=== PATIENT | male | born 1980 | race Caucasian/White ===

== ENCOUNTER 2019-06-18 06:23 | Emergency (ER) | payer BC ==
[2019-06-18] MEDS ORDERED: Albuterol/Ipratropium 3.0-0.5 MG/3 ML Neb Soln NEB ONE ×2 (07:14→08:03)
[2019-06-18] MEDS ORDERED: predniSONE 20 MG Tab PO ONE (07:14)
--- NOTE | 2019-06-18 07:22 | EDM.PDOC ---
ED HPI GENERAL MEDICAL PROBLEM - General Chief Complaint: Respiratory Problem Stated Complaint: FLU SYMPTOMS Time Seen by Provider: 06/18/19 07:05 Source of Information: Reports: Patient History Limitations: Reports: No Limitations - History of Present Illness INITIAL COMMENTS - FREE TEXT/NARRATIVE: Patient is a 39-year-old male who complains of having a cough which is occasionally productive of yellow sputum for the past week which is gotten much worse. Patient started with symptoms 1 days ago being achy all over and having a headache. His flulike symptoms have improved he denies any nausea vomiting but is having diarrhea. Is not a cigarette smoker has not had bronchitis or pneumonia in the past. His room air O2 sat is 93%. This reason I will get a chest x-ray on him. He does seem to have decreased breath sounds on his left base on my exam. He will be given some prednisone started on DuoNeb treatment and I will start him on antibiotic also. Duration: Week(s): (1) Location: Reports: Chest Severity: Mild Improves with: Reports: None Worsens with: Reports: None Associated Symptoms: Reports: Headaches, Malaise. Denies: Fever/Chills Treatments [employer]: Reports: NSAIDS chest with coughing Pain Score (Numeric/FACES): 8 - Related Data Allergies Allergy/AdvReac Type Severity Reaction Status Date / Time No Known Allergies Allergy Verified 06/18/19 06:47 Home Meds: Home Meds Albuterol Sulfate [Albuterol Sulfate Hfa] 8.5 gm IH Q6HR PRN 7 Days #1 [email or web address] 06/18/19 [Rx] Azithromycin [Zithromax] 250 mg PO DAILY #7 tab 06/18/19 [Rx] Codeine/guaiFENesin [Robitussin AC] 10 ml PO QID #120 bottle 06/18/19 [Rx] Levofloxacin [Levaquin] 500 mg PO DAILY #7 tablet 06/18/19 [Rx] Past Medical History - Past Health History Medical/Surgical History: Denies Medical/Surgical History - Infectious Disease History Infectious Disease History: Reports: Chicken Pox Social & Family History - Tobacco Use Smoking Status *Q: Never Smoker - Recreational Drug Use Recreational Drug Use: No ED ROS GENERAL - Review of Systems Review Of Systems: Comprehensive ROS is negative, except as noted in HPI. ED EXAM, GENERAL - Physical Exam Exam: See Below Free Text/Narrative:: Exam: See Below Exam Limited By: No Limitations Head: Atraumatic Neck: Normal Inspection. No: Carotid Bruit, Lymphadenopathy (R) Respiratory/Chest: No Respiratory Distress, Lungs Clear with decreased breath sounds on the left base only. No Accessory Muscle Use. No: Chest Non-Tender Cardiovascular: Normal Peripheral Pulses, Regular Rate, Rhythm, No Edema, No JVD GI/Abdominal: Normal Bowel Sounds, Tender. No: Non-Tender, Splenomegaly Back Exam: Normal Inspection. No: CVA Tenderness (R) Extremities: Normal Inspection. No: No Pedal Edema Neurological: Alert, Oriented, Normal Cognition Psychiatric: Normal Affect Skin Exam: Warm Lymphatic: No Adenopathy Course - Vital Signs Last Recorded V/S: Last Vital Signs Temp 37.0 C 06/18/19 06:40 Pulse 93 06/18/19 06:40 Resp 16 06/18/19 06:40 BP 120/66 06/18/19 06:40 Pulse Ox 92 L 06/18/19 06:40 - Orders/Labs/Meds Orders: Active Orders 24 hr Category Date Time Status RT Aerosol Therapy [RC] ASDIRECTED Care 06/18/19 07:16 Active RT Aerosol Therapy [RC] ASDIRECTED Care 06/18/19 08:03 Active Sodium Chloride 0.9% [Normal Saline] 1,000 ml Med 06/18/19 08:43 Active IV .BOLUS Sodium Chloride 0.9% [Saline Flush] Med 06/18/19 08:00 Active 10 ml FLUSH ASDIRECTED PRN Sodium Chloride 0.9% [Saline Flush] Med 06/18/19 08:00 Active 2.5 ml FLUSH ASDIRECTED PRN Saline Lock Insert [OM.PC] Stat Oth 06/18/19 08:00 Ordered Medication Orders Sodium Chloride (Normal Saline) 1,000 mls @ 999 mls/hr IV .BOLUS ONE Stop: 06/18/19 09:43 Sodium Chloride (Saline Flush) 10 ml FLUSH ASDIRECTED PRN PRN Reason: Keep Vein Open Sodium Chloride (Saline Flush) 2.5 ml FLUSH ASDIRECTED PRN PRN Reason: Keep Vein Open Labs: Laboratory Tests 06/18/19 06/18/19 06/18/19 Range/Units 08:12 08:12 08:12 WBC 9.81 (4.0-11.0) K/uL RBC 4.84 (4.50-5.90) M/uL Hgb 15.7 (13.0-17.0) g/dL Hct 45.4 (38.0-50.0) % MCV 93.8 (80.0-98.0) fL MCH 32.4 H (27.0-32.0) pg MCHC 34.6 (31.0-37.0) g/dL RDW Std Deviation 44.8 (28.0-62.0) fl RDW Coeff of Cherie 13 (11.0-15.0) % Plt Count 73 L (150-400) K/uL MPV 11.10 (7.40-12.00) fL Neut % (Auto) 83.2 H (48.0-80.0) % Lymph % (Auto) 9.8 L (16.0-40.0) % [place] % (Auto) 6.9 (0.0-15.0) % Eos % (Auto) 0.0 (0.0-7.0) % Baso % (Auto) 0.1 (0.0-1.5) % Neut # (Auto) 8.2 H (1.4-5.7) K/uL Lymph # (Auto) 1.0 (0.6-2.4) K/uL [place] # (Auto) 0.7 (0.0-0.8) K/uL Eos # (Auto) 0.0 (0.0-0.7) K/uL Baso # (Auto) 0.0 (0.0-0.1) K/uL Nucleated RBC % 0.0 /100WBC Nucleated RBCs # 0 K/uL D-Dimer, Quantitative 0.67 H (0.0-0.50) mg/L FEU Lactate 2.6 H* (0.20-2.00) mmol/L Sodium (136-148) mmol/L Potassium (3.5-5.1) mmol/L Chloride (98-107) mmol/L Carbon Dioxide (21.0-32.0) mmol/L BUN (7.0-18.0) mg/dL Creatinine (0.8-1.3) mg/dL Est Cr Clr Drug Dosing mL/min Estimated GFR (MDRD) ml/min Glucose (74-106) mg/dL Calcium (8.5-10.1) mg/dL Total Bilirubin (0.2-1.0) mg/dL AST (15-37) IU/L ALT (14-63) IU/L Alkaline Phosphatase (46-116) U/L Total Protein (6.4-8.2) g/dL Albumin (3.4-5.0) g/dL Globulin (2.6-4.0) g/dL Albumin/Globulin Ratio (0.9-1.6) 06/18/19 Range/Units 08:12 WBC (4.0-11.0) K/uL RBC (4.50-5.90) M/uL Hgb (13.0-17.0) g/dL Hct (38.0-50.0) % MCV (80.0-98.0) fL MCH (27.0-32.0) pg MCHC (31.0-37.0) g/dL RDW Std Deviation (28.0-62.0) fl RDW Coeff of Cherie (11.0-15.0) % Plt Count (150-400) K/uL MPV (7.40-12.00) fL Neut % (Auto) (48.0-80.0) % Lymph % (Auto) (16.0-40.0) % [place] % (Auto) (0.0-15.0) % Eos % (Auto) (0.0-7.0) % Baso % (Auto) (0.0-1.5) % Neut # (Auto) (1.4-5.7) K/uL Lymph # (Auto) (0.6-2.4) K/uL [place] # (Auto) (0.0-0.8) K/uL Eos # (Auto) (0.0-0.7) K/uL Baso # (Auto) (0.0-0.1) K/uL Nucleated RBC % /100WBC Nucleated RBCs # K/uL D-Dimer, Quantitative (0.0-0.50) mg/L FEU Lactate (0.20-2.00) mmol/L Sodium 136 (136-148) mmol/L Potassium 3.9 (3.5-5.1) mmol/L Chloride 97 L (98-107) mmol/L Carbon Dioxide 28.3 (21.0-32.0) mmol/L BUN 9 (7.0-18.0) mg/dL Creatinine 1.3 (0.8-1.3) mg/dL Est Cr Clr Drug Dosing 79.64 mL/min Estimated GFR (MDRD) > 60.0 ml/min Glucose 139 H (74-106) mg/dL Calcium 8.2 L (8.5-10.1) mg/dL Total Bilirubin 0.4 (0.2-1.0) mg/dL AST 25 (15-37) IU/L ALT 29 (14-63) IU/L Alkaline Phosphatase 67 (46-116) U/L Total Protein 7.2 (6.4-8.2) g/dL Albumin 3.4 (3.4-5.0) g/dL Globulin 3.8 (2.6-4.0) g/dL Albumin/Globulin Ratio 0.9 (0.9-1.6) Meds: Medications Generic Name Dose Route Start Last Admin Trade Name Freq PRN Reason Stop Dose Admin Sodium Chloride 1,000 mls @ 999 mls/hr 06/18/19 08:43 Normal Saline IV 06/18/19 09:43 .BOLUS ONE Sodium Chloride 10 ml 06/18/19 08:00 Saline Flush FLUSH ASDIRECTED PRN Keep Vein Open Sodium Chloride 2.5 ml 06/18/19 08:00 Saline Flush FLUSH ASDIRECTED PRN Keep Vein Open Discontinued Medications Generic Name Dose Route Start Last Admin Trade Name Freq PRN Reason Stop Dose Admin Albuterol/Ipratropium 3 ml 06/18/19 07:14 06/18/19 07:28 Duoneb 3.0-0.5 Mg/3 Ml NEB 06/18/19 07:15 3 ml ONETIME ONE Administration Albuterol/Ipratropium 3 ml 06/18/19 08:03 06/18/19 08:10 Duoneb 3.0-0.5 Mg/3 Ml NEB 06/18/19 08:04 3 ml ONETIME ONE Administration Azithromycin 500 mg 06/18/19 08:45 Zithromax PO 06/18/19 08:46 Q24H ONE Levofloxacin 500 mg 06/18/19 08:03 Levaquin PO 06/18/19 08:04 ONETIME ONE Prednisone 40 mg 06/18/19 07:14 06/18/19 07:40 Prednisone PO 06/18/19 07:15 40 mg ONETIME ONE Administration - Re-Assessments/Exams Free Text/Narrative Re-Assessment/Exam: 06/18/19 08:58 Patient felt no better after DuoNeb and prednisone. His room air pulse ox was 90% though he did not feel dyspneic. Chest x-ray was unimpressive to my assessment but radiologist has read it as an early left lower lobe infiltrate. Patient is receiving both Levaquin 500mg p.o. and Zithromax 500 mg p.o. As lactate was 2.6 otherwise his d-dimer is negative and white blood cell count unimpressive. Patient was offered admission in the hospital which he has refused and states he feels well enough to go home. I am giving him a liter of fluid for the elevated lactate continue him on both antibiotics. I have explained to him that if he is feeling worse particularly any dyspnea with exertion, fever chills, vomiting or any other symptoms worsening he should return immediately to the emergency department and we can admit him to the hospital at that time. Patient is recovering from recent flulike symptoms approximately 1 week ago. Departure - Departure Time of Disposition: 09:01 Disposition: Home, Self-Care 01 Condition: Good, Fair Clinical Impression: Pneumonia, Flu-like symptoms Clinical Impression: (Ruled Out): Viral gastroenteritis - Discharge Information Instructions: Community-Acquired Pneumonia, Adult Referrals: PCP,None [Primary Care Provider] - Forms: ED Department Discharge, ED Summary Discharge Additional Instructions: Meds as prescribed. Return to ER if symptoms worsen. Follow-up with PCP for recheck over the next week. The following information is given to patients seen in the emergency department who are being discharged to home. This information is to outline your options for follow-up care. We provide all patients seen in our emergency department with a follow-up referral. The need for follow-up, as well as the timing and circumstances, are variable depending upon the specifics of your emergency department visit. If you don't have a primary care physician on staff, we will provide you with a referral. We always advise you to contact your personal physician following an emergency department visit to inform them of the circumstance of the visit and for follow-up with them and/or the need for any referrals to a consulting specialist. The emergency department will also refer you to a specialist when appropriate. This referral assures that you have the opportunity for follow-up care with a specialist. All of these measure are taken in an effort to provide you with optimal care, which includes your follow-up. Under all circumstances we always encourage you to contact your private physician who remains a resource for coordinating your care. When calling for follow-up care, please make the office aware that this follow-up is from your recent emergency room visit. If for any reason you are refused follow-up, please contact the [facility] Emergency Department at and asked to speak to the emergency department charge nurse. Sepsis Event Note - Evaluation Sepsis Screening Result: No Definite Risk - Focused Exam Vital Signs: Vital Signs Temp Pulse Resp BP Pulse Ox 06/18/19 06:40 37.0 C 93 16 120/66 92 L Date Exam was Performed: 06/18/19 Time Exam was Performed: 08:57 - My Orders Last 24 Hours: My Active Orders 06/18/19 07:16 RT Aerosol Therapy [RC] ASDIRECTED 06/18/19 08:00 Sodium Chloride 0.9% [Saline Flush] 10 ml FLUSH ASDIRECTED PRN Sodium Chloride 0.9% [Saline Flush] 2.5 ml FLUSH ASDIRECTED PRN Saline Lock Insert [OM.PC] Stat 06/18/19 08:03 RT Aerosol Therapy [RC] ASDIRECTED 06/18/19 08:43 Sodium Chloride 0.9% [Normal Saline] 1,000 ml IV .BOLUS - Assessment/Plan Last 24 Hours: My Active Orders 06/18/19 07:16 RT Aerosol Therapy [RC] ASDIRECTED 06/18/19 08:00 Sodium Chloride 0.9% [Saline Flush] 10 ml FLUSH ASDIRECTED PRN Sodium Chloride 0.9% [Saline Flush] 2.5 ml FLUSH ASDIRECTED PRN Saline Lock Insert [OM.PC] Stat 06/18/19 08:03 RT Aerosol Therapy [RC] ASDIRECTED 06/18/19 08:43 Sodium Chloride 0.9% [Normal Saline] 1,000 ml IV .BOLUS
[2019-06-18] MEDS ORDERED: Sodium Chloride 0.9% 2.5 ML Syringe FLUSH PRN (08:00)
[2019-06-18] MEDS ORDERED: Sodium Chloride 0.9% 10 ML Syringe FLUSH PRN (08:00)
[2019-06-18] MEDS ORDERED: Levofloxacin 500 MG Tab PO ONE (08:03)
--- NOTE | 2019-06-18 08:22 | CR ---
INDICATION: Cough with hypoxia. COMPARISON: None. TECHNIQUE: Two-view chest. FINDINGS: Normal size cardiac silhouette. Pneumonic infiltrates lower lobe left lung. No pneumothorax or pleural effusion. No evidence of CHF. IMPRESSION: Pneumonic infiltrates left lower lobe. Dictated by Laina Washington MD @ Jun 18 2019 8:18AM Signed by Dr. Laina Washington @ Jun 18 2019 8:19AM
[2019-06-18] MEDS ORDERED: Sodium Chloride 0.9% 1,000 ML IV ONE (08:43)
[2019-06-18] MEDS ORDERED: Azithromycin 250 MG Tab PO ONE (08:45)
[2019-06-18 08:47] LABS: BLOOD UREA NITROGEN,BUN 9 mg/dL (7.0-18.0); CARBON DIOXIDE,CO2 28.3 mmol/L (21.0-32.0); CHLORIDE,CL 97 mmol/L (98-107); GLUCOSE RANDOM 139 mg/dL (74-106); POTASSIUM,K 3.9 mmol/L (3.5-5.1); SODIUM,NA 136 mmol/L (136-148)
[2019-06-18] MEDS ORDERED: Ketorolac 30 MG/ML SDV IVPUSH ONE (09:06)
== END 2019-06-18 10:04 | disposition home or self-care (01) ==
LOC: MW.ED 06:23
DX: J18.9 Pneumonia, unspecified organism (principal); R19.7 Diarrhea, unspecified
CPT/HCPCS: 36415; 71046; 80053; 83605; 85025; 85379; 94640; 96361; 96374; 99284; A9270; J1885; J7030; 99283; J7620-GY